=== PATIENT | female | born 1980 | race Two or more races ===

== ENCOUNTER 2019-11-27 00:43 | Emergency (ER) | payer MEDICAID, OTHER ==
[2019-11-27] MEDS ORDERED: Ketorolac 60 MG/2 ML SDV IM ONE (01:17)
--- NOTE | 2019-11-27 01:23 | EDM.PDOC ---
ED HPI GENERAL MEDICAL PROBLEM - General Chief Complaint: Drug or Alcohol Abuse Stated Complaint: DRUG WITHDRAWAL Time Seen by Provider: 11/27/19 00:47 - History of Present Illness INITIAL COMMENTS - FREE TEXT/NARRATIVE: Patient is a 39-year-old female who presents with symptoms that she believes are related to drug withdrawal. She states that for the last month she has been steadily smoking methamphetamine and smoking fentanyl pills. She does have a remote history of IV drug abuse. She arrived in town today she moved here from [place] to be with her mom and try and get clean. She states that she has never been through withdrawal before and is quite scared she describes diffuse pain and body aches fatigue lack of energy and depressed mood. No fevers no cough no neck pain or stiffness no sore throat no runny nose. Symptoms are constant and moderate to severe without exacerbating or alleviating factors radiation or other associated symptoms. Generalized Pain Score (Numeric/FACES): 8 - Related Data Allergies Allergy/AdvReac Type Severity Reaction Status Date / Time metoclopramide HCl Allergy itchiness Verified 11/27/19 01:06 [From Reglan] nitrofurantoin Allergy Hives Verified 11/27/19 01:06 [From Macrobid] nitrofurantoin Allergy Hives Verified 11/27/19 01:06 macrocrystalline [From Macrobid] ondansetron HCl Allergy itchiness Verified 11/27/19 01:06 [From Zofran (as hydrochloride)] prochlorperazine edisylate Allergy itchiness Verified 11/27/19 01:06 [From Compazine] prochlorperazine maleate Allergy itchiness Verified 11/27/19 01:06 [From Compazine] Home Meds: Home Meds . [No Known Home Meds] 11/27/19 [History] Past Medical History Cardiovascular History: Reports: Hypertension Genitourinary History: Reports: None Other RESIDENTIAL PROGRAM MANAGER History: CSx4 Musculoskeletal History: Reports: None Neurological History: Reports: None Psychiatric History: Reports: None Endocrine/Metabolic History: Reports: Diabetes, Type II Hematologic History: Reports: None Immunologic History: Reports: None Oncologic (Cancer) History: Reports: None Dermatologic History: Reports: None - Infectious Disease History Infectious Disease History: Reports: None - Past Surgical History Head Surgeries/Procedures: Reports: None HEENT Surgical History: Reports: Tonsillectomy GI Surgical History: Reports: Appendectomy, Cholecystectomy Social & Family History - Family History Cardiac: Reports: Hypertension, [place] Endocrine/Metabolic: Reports: Diabetes, type II - Tobacco Use Smoking Status *Q: Current Every Day Smoker Years of Tobacco use: 19 Packs/Tins Daily: 0.2 - Caffeine Use Caffeine Use: Reports: None - Recreational Drug Use Recreational Drug Type: Reports: Fentanyl, Methamphetamine Recreational Drug Use Frequency: Daily ED ROS GENERAL - Review of Systems Review Of Systems: See Below Free Text/Narrative/Comment: General: No fever. Skin: No rash. Eyes: No vision problems. ENT: No sore throat. Neck: No neck stiffness. Respiratory: No shortness of breath. Cardiac: No chest pain. Gastrointestinal: No nausea, vomiting or abdominal pain. Urinary: No dysuria. Musculoskeletal: Per HPI Neurologic: No headache. ED EXAM, GENERAL - Physical Exam Exam: See Below Free Text/Narrative:: General Appearance: No acute distress, appears comfortable Skin: No rash HEENT: Normocephalic/atraumatic, sclera anicteric, mucous membranes moist Neck: Normal range of motion Chest and Lungs: Bilateral breath sounds, clear to auscultation Cardiovascular: Regular rate and rhythm, no murmur Abdomen: Soft, non-tender Back: Normal Musculoskeletal: No edema or tenderness Neurologic: Awake, alert, no obvious deficits, moving all extremities Psychiatric: Appropriate, cooperative Course - Vital Signs Last Recorded V/S: Last Vital Signs Temp 96.7 F L 11/27/19 01:05 Pulse 96 11/27/19 01:05 Resp 18 11/27/19 01:05 BP 144/104 H 11/27/19 01:05 Pulse Ox 96 11/27/19 01:05 - Orders/Labs/Meds Orders: Active Orders 24 hr Category Date Time Status CORONAVIRUS COVID-19 PCR PHL Stat Lab 11/27/19 01:17 Ordered Labs: Laboratory Tests 11/27/19 Range/Units 01:29 SARS CoV-2 RNA Rapid M[facility]A NEGATIVE (NEGATIVE) Meds: Medications Discontinued Medications Generic Name Dose Route Start Last Admin Trade Name Freq PRN Reason Stop Dose Admin Ketorolac Tromethamine 60 mg 11/27/19 01:17 11/27/19 01:34 Toradol IM 11/27/19 01:18 60 mg ONETIME ONE Administration Departure - Departure Time of Disposition: 02:34 Disposition: Home, Self-Care 01 Condition: Good Clinical Impression: Drug withdrawal - Discharge Information *PRESCRIPTION DRUG MONITORING PROGRAM REVIEWED*: Not Applicable *COPY OF PRESCRIPTION DRUG MONITORING REPORT IN PATIENT ERIK: Not Applicable Instructions: Opioid Withdrawal Treatment, Finding Treatment for Addiction Referrals: [facility] [Outside] Forms: ED Department Discharge Additional Instructions: The following information is given to patients seen in the emergency department who are being discharged to home. This information is to outline your options for follow-up care. We provide all patients seen in our emergency department with a follow-up referral. The need for follow-up, as well as the timing and circumstances, are variable depending upon the specifics of your emergency department visit. If you don't have a primary care physician on staff, we will provide you with a referral. We always advise you to contact your personal physician following an emergency department visit to inform them of the circumstance of the visit and for follow-up with them and/or the need for any referrals to a consulting specialist. The emergency department will also refer you to a specialist when appropriate. This referral assures that you have the opportunity for follow-up care with a specialist. All of these measure are taken in an effort to provide you with optimal care, which includes your follow-up. Under all circumstances we always encourage you to contact your private physician who remains a resource for coordinating your care. When calling for follow-up care, please make the office aware that this follow-up is from your recent emergency room visit. If for any reason you are refused follow-up, please contact the [facility] Emergency Department at and asked to speak to the emergency department charge nurse. Sepsis Event Note (ED) - Evaluation Sepsis Screening Result: No Definite Risk - Focused Exam Vital Signs: Vital Signs Temp Pulse Resp BP Pulse Ox 11/27/19 01:05 96.7 F L 96 18 144/104 H 96 - My Orders Last 24 Hours: My Active Orders 11/27/19 01:17 CORONAVIRUS COVID-19 PCR PHL Stat - Assessment/Plan Last 24 Hours: My Active Orders 11/27/19 01:17 CORONAVIRUS COVID-19 PCR PHL Stat Assessment:: 39-year-old female presenting with signs and symptoms that are most likely due to meth and opioid withdrawal. No dysuria no fever but symptoms are similar to COVID and given the outbreak will swab. No dysuria hematuria that would suggest pyelonephritis no abdominal pain would suggest appendicitis or diverticulitis no findings of meningitis or encephalitis. Patient nontoxic in appearance. Patient will be swab for COVID given a shot of Toradol we discussed the expected course of drug withdrawal and patient provided with resources in the community for follow-up. COVID negative patient discharged with resources.
[2019-11-27 06:46] VITALS: BP 151/105; PULSE 97
== END 2019-11-27 02:54 | disposition home or self-care (01) ==
LOC: MW.ED 00:43
DX: F15.93 Other stimulant use, unspecified with withdrawal (principal); F11.23 Opioid dependence with withdrawal; I10 Essential (primary) hypertension; E11.9 Type 2 diabetes mellitus without complications; F17.210 Nicotine dependence, cigarettes, uncomplicated; Z88.1 Allergy status to other antibiotic agents; Z88.8 Allergy status to other drugs, medicaments and biological substances; Z20.828 Contact with and (suspected) exposure to other viral communicable diseases
CPT/HCPCS: 87635; 96372; 99284; J1885; 99283; U0002

== ENCOUNTER 2019-11-27 09:23 | Emergency (ER) | payer MEDICAID ==
--- NOTE | 2019-11-27 09:24 | EDM.PDOC ---
ED HPI GENERAL MEDICAL PROBLEM - General Stated Complaint: UNKNOWN ISSUE Time Seen by Provider: 11/27/19 09:23 Source of Information: Reports: Patient History Limitations: Reports: No Limitations - History of Present Illness INITIAL COMMENTS - FREE TEXT/NARRATIVE: 39-year-old female with remote history of IV drug abuse returns for symptoms of opiate withdrawal. She was seen in the ER this morning and was discharged around 2:30 AM with a diagnosis of opiate withdrawal, she went home to the [facility] and states that she has not been able to sleep, she vomited 3 times, she had diffuse myalgia, she feels anxious and had chills and runny nose. The symptoms prompted her to come back for reassessment. She was not discharged with any prescriptions. She flew here from [place] yesterday to be with her mom to try to get clean. The last time she smoked fentanyl pills and methamphetamine was Saturday. She used IV drugs 4 months ago. Patient denies fever, headache, chest pain, shortness of breath, abdominal pain, focal numbness or weakness. ROS: A 10-point review of systems, other than pertinent positives and negatives as stated per HPI, is otherwise negative Past medical history: No additional pertinent history Past Surgical history: No additional pertinent history Social history: No additional pertinent history Family history: No additional pertinent history PHYSICAL EXAM General: AOx4, GCS = 15, No distress HEENT: dry mucous membrane, pupils 3mm bilaterally Neck: supple, no meningismus, no Kernig or Brudzinski Cardiac: S1S2 RRR Respiratory: CTAB, no crackles or rales, no wheezing Abdomen: Soft, nontender, no rebound or guarding, nondistended, no pulsatile mass. Back: nontender Musculoskeletal: NVI distally, no deformity Neuro: No focal deficits, CN 2 - 12 WNL. no tremors. Abdominal Pain Score (Numeric/FACES): 9 - Related Data Allergies Allergy/AdvReac Type Severity Reaction Status Date / Time metoclopramide HCl Allergy itchiness Verified 11/27/19 09:42 [From Reglan] nitrofurantoin Allergy Hives Verified 11/27/19 09:42 [From Macrobid] nitrofurantoin Allergy Hives Verified 11/27/19 09:42 macrocrystalline [From Macrobid] ondansetron HCl Allergy itchiness Verified 11/27/19 09:42 [From Zofran (as hydrochloride)] prochlorperazine edisylate Allergy itchiness Verified 11/27/19 09:42 [From Compazine] prochlorperazine maleate Allergy itchiness Verified 11/27/19 09:42 [From Compazine] Home Meds: Home Meds cloNIDine [Catapres] 0.1 mg PO DAILY #12 tab 11/27/19 [Rx] Past Medical History Cardiovascular History: Reports: Hypertension Genitourinary History: Reports: None Other OCCUPATIONAL HEALTH SPECIALIST History: CSx4 Musculoskeletal History: Reports: None Neurological History: Reports: None Psychiatric History: Reports: None Endocrine/Metabolic History: Reports: Diabetes, Type II Hematologic History: Reports: None Immunologic History: Reports: None Oncologic (Cancer) History: Reports: None Dermatologic History: Reports: None - Infectious Disease History Infectious Disease History: Reports: None - Past Surgical History Head Surgeries/Procedures: Reports: None HEENT Surgical History: Reports: Tonsillectomy GI Surgical History: Reports: Appendectomy, Cholecystectomy Social & Family History - Family History Cardiac: Reports: Hypertension, [place] Endocrine/Metabolic: Reports: Diabetes, type II - Caffeine Use Caffeine Use: Reports: None ED ROS GENERAL - Review of Systems Review Of Systems: See Below (see dictation) ED EXAM, GENERAL - Physical Exam Exam: See Below (see dictation) Course - Vital Signs Last Recorded V/S: Last Vital Signs Temp 96.2 F L 11/27/19 09:42 Pulse 71 11/27/19 10:04 Resp 16 11/27/19 10:04 BP 166/122 H 11/27/19 10:00 Pulse Ox 98 11/27/19 10:04 - Orders/Labs/Meds Meds: Medications Discontinued Medications Generic Name Dose Route Start Last Admin Trade Name Freq PRN Reason Stop Dose Admin Clonidine HCl 0.1 mg 11/27/19 09:52 11/27/19 10:00 Catapres PO 11/27/19 09:53 0.1 mg ONETIME ONE Administration Lorazepam 1 mg 11/27/19 09:52 11/27/19 10:01 Ativan PO 11/27/19 09:53 1 mg ONETIME ONE Administration Promethazine HCl 12.5 mg 11/27/19 09:52 11/27/19 10:01 Phenergan IM 11/27/19 09:53 12.5 mg ONETIME ONE Administration - Re-Assessments/Exams Free Text/Narrative Re-Assessment/Exam: 11/27/19 10:36 After receiving promethazine IM, Ativan and clonidine 0.1 mg p.o., her symptoms improved and she feels much better, she is currently stable for discharge. I performed a repeat exam and did not appreciate new abnormal findings. Patient exhibits normal vital signs and has a normal gait on road test. I advised the patient to return to the ER for reevaluation if symptoms worsened, including fe jose raul, worsening pain, or any other worrisome symptoms. I instructed the patient to follow up with their PCP within 2-3 days. MEDICAL DECISION MAKING: I reviewed the patients past medical records, lab and radiographic findings. I discussed the case with the patient. My differential diagnosis included: Opiate withdrawal, no suspicion for appendicitis, no suspicion for intracranial infectious process. Patient is afebrile, no nuchal rigidity or headache, I do not suspect encephalitis or meningitis. Patient's abdomen is soft and nontender, no tenderness to right lower quadrant, I do not suspect appendicitis. Patient's COWS score for opiate withdrawal = 8, she is having symptoms of mild withdrawal, she is amendable for outpatient treatment and follow-up with outpatient resources provided. She will be prescribed clonidine 0.1 mg daily for her symptoms. Departure - Departure Time of Disposition: 10:37 Disposition: Home, Self-Care 01 Condition: Good Clinical Impression: Opiate withdrawal - Discharge Information *PRESCRIPTION DRUG MONITORING PROGRAM REVIEWED*: Not Applicable *COPY OF PRESCRIPTION DRUG MONITORING REPORT IN PATIENT ERIK: Not Applicable Prescriptions: cloNIDine [Catapres] 0.1 mg PO DAILY #12 tab Instructions: Opioid Withdrawal Treatment, Finding Treatment for Addiction, Opioid Withdrawal Forms: ED Department Discharge Additional Instructions: The need for follow-up, as well as the timing and circumstances, are variable depending upon the specifics of your emergency department visit. If you don't have a primary care physician on staff, we will provide you with a referral. We always advise you to contact your personal physician following an emergency department visit to inform them of the circumstance of the visit and for follow-up with them and/or the need for any referrals to a consulting specialist. The emergency department will also refer you to a specialist when appropriate. This referral assures that you have the opportunity for follow-up care with a specialist. All of these measure are taken in an effort to provide you with optimal care, which includes your follow-up. Under all circumstances we always encourage you to contact your private physician who remains a resource for coordinating your care. When calling for follow-up care, please make the office aware that this follow-up is from your recent emergency room visit. If for any reason you are refused follow-up, please contact the Emergency Department at and asked to speak to the emergency department charge nurse. If you do not have a primary care doctor, please follow up with the clinics below within 3-5 days. [facility] - Primary Care [address] [place], [place] [id number] [place] [address] Sepsis Event Note (ED) - Focused Exam Vital Signs: Vital Signs Temp Pulse Resp BP BP Pulse Ox 11/27/19 10:04 71 16 98 11/27/19 10:00 166/122 H 11/27/19 09:42 96.2 F L 81 16 148/106 H 100
[2019-11-27] MEDS ORDERED: LORazepam 1 MG Tab PO ONE (09:52)
[2019-11-27] MEDS ORDERED: Promethazine 25 MG/ML SDV IM ONE (09:52)
[2019-11-27] MEDS ORDERED: cloNIDine 0.1 MG Tab PO ONE (09:52)
[2019-11-27 10:41] VITALS: BP 158/111; PULSE 87
== END 2019-11-27 10:55 | disposition home or self-care (01) ==
LOC: MW.ED 09:23
DX: F11.23 Opioid dependence with withdrawal (principal); I10 Essential (primary) hypertension; E11.9 Type 2 diabetes mellitus without complications; Z88.8 Allergy status to other drugs, medicaments and biological substances; Z88.1 Allergy status to other antibiotic agents; Z79.899 Other long term (current) drug therapy
CPT/HCPCS: 96372; 99283; A9270; J2550

== ENCOUNTER 2019-11-27 21:50 | Emergency (ER) | payer MEDICAID ==
[2019-11-27] MEDS ORDERED: Sodium Chloride 0.9% 2.5 ML Syringe FLUSH PRN (22:03)
[2019-11-27] MEDS ORDERED: Sodium Chloride 0.9% 10 ML Syringe FLUSH PRN (22:03)
[2019-11-27] MEDS ORDERED: Sodium Chloride 0.9% 1,000 ML IV ONE (22:04)
--- NOTE | 2019-11-27 22:13 | EDM.PDOC ---
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 Shortly after midnight she came and saw my partner for withdrawal symptoms and received parenteral ketorolac for pain and instruction on what to expect with drug withdrawal. Later in the morning she came in and saw 1 of my other partners and was given that again, Ativan, and clonidine as well as a prescription for clonidine. She says she has unbearable lower chest upper epigastric pain and her mother said after they went to a restaurant and ate she became difficult to arouse. She was dragged out of a car and brought by stretcher into the emergency room. At rst she appeared to be unresponsive but she was responsive to painful and then verbal stimuli in the department. Her sugar was checked immediately and found to be adequate over 300 in fact. Her past history reveals she used to take metformin. She took 3 medicines for blood pressure as well. Review of systems: As per history of present illness and below otherwise all systems reviewed and negative. Past medical history: As per history of present illness and as reviewed below otherwise noncontributory. Surgical history: As per history of present illness and as reviewed below otherwise no ncontributory. Social history: No reported history of drug or alcohol abuse. Family history: As per history of present illness and as reviewed below otherwise noncontributory. Physical exam: Constitutional - well developed, well-nourished and in no acute distress HEENT - normocephalic, no evidence of trauma - external nose and mouth normal - no mass in neck and no JVD - mucosae moist EYES - full EOM, PERRL, no icterus - no evidence of inflammation, injection, or drainage Respiratory - no respiratory distress, equal bilateral expansion, lungs clear to auscultation and no abnormal lung sounds Cardiovascular - Regular Rhythm with S1 and S2 appreciated and no murmur, gallop or rub. GI - abdomen soft without distension or organomegaly - normal bowel sounds - no guard or rebound Musculoskeletal no gross deformity of long bones or joints - no tenderness, swelling or edema Neurologic -supple and oriented to person time and circumstances. At first she still thought she was in [facility] He remembered she moved here to be with her mother so technically she is oriented x4.- CN II-XII grossly intact - motor sensory and coordination symmetrically normal Psychiatric -stressed but cooperative Hematologic - No petechiae or purpura - mucosa appropriate color and sclera not pale - normal nail bed color and refill Integument - no rash or evidence of trauma - normal turgor Diagnostics: [] Therapeutics: [] Impression: [] Plan: [] Definitive disposition and diagnosis as appropriate pending reevaluation and review of above. chest Pain Score (Numeric/FACES): 5 - Related Data Allergies Allergy/AdvReac Type Severity Reaction Status Date / Time metoclopramide HCl Allergy itchiness Verified 11/27/19 23:09 [From Reglan] nitrofurantoin Allergy Hives Verified 11/27/19 23:09 [From Macrobid] nitrofurantoin Allergy Hives Verified 11/27/19 23:09 macrocrystalline [From Macrobid] ondansetron HCl Allergy itchiness Verified 11/27/19 23:09 [From Zofran (as hydrochloride)] prochlorperazine edisylate Allergy itchiness Verified 11/27/19 23:09 [From Compazine] prochlorperazine maleate Allergy itchiness Verified 11/27/19 23:09 [From Compazine] Home Meds: Home Meds ClonazePAM [KlonoPIN] 0.5 mg PO TID PRN #14 tab 11/27/19 [Rx] cloNIDine [Catapres] 0.1 mg PO DAILY #12 tab 11/27/19 [Rx] metFORMIN HCl [Metformin HCl] 500 mg PO BID #60 tablet 11/28/19 [Rx] Past Medical History Cardiovascular History: Reports: Hypertension Genitourinary History: Reports: None Other TRAFFIC OFFICER History: CSx4 Musculoskeletal History: Reports: None Neurological History: Reports: None Psychiatric History: Reports: None Endocrine/Metabolic History: Reports: Diabetes, Type II Hematologic History: Reports: None Immunologic History: Reports: None Oncologic (Cancer) History: Reports: None Dermatologic History: Reports: None - Infectious Disease History Infectious Disease History: Reports: None - Past Surgical History Head Surgeries/Procedures: Reports: None HEENT Surgical History: Reports: Tonsillectomy GI Surgical History: Reports: Appendectomy, Cholecystectomy Social & Family History - Family History Family Medical History: Noncontributory Cardiac: Reports: Hypertension, OR Endocrine/Metabolic: Reports: Diabetes, type II - Caffeine Use Caffeine Use: Reports: None ED ROS GENERAL - Review of Systems Review Of Systems: Comprehensive ROS is negative, except as noted in HPI. ED EXAM, GENERAL - Physical Exam Exam: See Below EKG INTERPRETATION EKG Date: 11/27/19 Rhythm: NSR [place]: Normal P-Wave: Present QRS: Normal (Impression normal) Course - Vital Signs Text/Narrative:: [facility]ven department and at 12:03 AM on 27 November she had tremor of her legs but otherwise was markedly improved and arousable. It suggest she possibly had use some other substance in the interim since she was last seen here. She will be referred to [facility] health services. Last Recorded V/S: Last Vital Signs Temp 96.9 F 11/27/19 21:51 Pulse 78 11/27/19 23:34 Resp 14 11/27/19 23:34 BP 123/96 H 11/27/19 23:34 Pulse Ox 95 11/27/19 23:34 - Orders/Labs/Meds Orders: Active Orders 24 hr Category Date Time Status EKG Documentation Completion [RC] AM Care 11/27/19 22:03 Active Sodium Chloride 0.9% [Saline Flush] Med 11/27/19 22:03 Active 10 ml FLUSH ASDIRECTED PRN Sodium Chloride 0.9% [Saline Flush] Med 11/27/19 22:03 Active 2.5 ml FLUSH ASDIRECTED PRN Saline Lock Insert [OM.PC] Stat Oth 11/27/19 22:03 Ordered Medication Orders Sodium Chloride (Saline Flush) 10 ml FLUSH ASDIRECTED PRN PRN Reason: Keep Vein Open Sodium Chloride (Saline Flush) 2.5 ml FLUSH ASDIRECTED PRN PRN Reason: Keep Vein Open Labs: Laboratory Tests 11/27/19 11/27/19 11/27/19 Range/Units 21:53 21:53 21:53 WBC 10.53 (4.0-11.0) K/uL RBC 4.15 L (4.30-5.90) M/uL Hgb 10.6 L (12.0-16.0) g/dL Hct 33.0 L (36.0-46.0) % MCV 79.5 L (80.0-98.0) fL MCH 25.5 L (27.0-32.0) pg MCHC 32.1 (31.0-37.0) g/dL RDW Std Deviation 43.3 (28.0-62.0) fl RDW Coeff of Hoang 15 (11.0-15.0) % Plt Count 458 H (150-400) K/uL MPV 10.10 (7.40-12.00) fL Neut % (Auto) 69.3 (48.0-80.0) % Lymph % (Auto) 23.9 (16.0-40.0) % [place] % (Auto) 6.0 (0.0-15.0) % Eos % (Auto) 0.6 (0.0-7.0) % Baso % (Auto) 0.2 (0.0-1.5) % Neut # (Auto) 7.3 H (1.4-5.7) K/uL Lymph # (Auto) 2.5 H (0.6-2.4) K/uL [place] # (Auto) 0.6 (0.0-0.8) K/uL Eos # (Auto) 0.1 (0.0-0.7) K/uL Baso # (Auto) 0.0 (0.0-0.1) K/uL Nucleated RBC % 0.0 /100WBC Nucleated RBCs # 0 K/uL Sodium 133 L (136-145) mmol/L Potassium 4.1 (3.5-5.1) mmol/L Chloride 100 (98-107) mmol/L Carbon Dioxide 25.0 (21.0-32.0) mmol/L BUN 13 (7.0-18.0) mg/dL Creatinine 0.8 (0.6-1.0) mg/dL Est Cr Clr Drug Dosing TNP Estimated GFR (MDRD) > 60.0 ml/min Glucose 383 H (74-106) mg/dL Calcium 8.5 (8.5-10.1) mg/dL Total Bilirubin 0.1 L (0.2-1.0) mg/dL AST 9 L (15-37) IU/L ALT 18 (14-63) IU/L Alkaline Phosphatase 65 (46-116) U/L Troponin I < 0.050 (0.000-0.056) ng/mL Total Protein 7.3 (6.4-8.2) g/dL Albumin 2.8 L (3.4-5.0) g/dL Globulin 4.5 H (2.6-4.0) g/dL Albumin/Globulin Ratio 0.6 L (0.9-1.6) Lipase (73-393) U/L HCG, Qual NEGATIVE (NEG) Urine Color Urine Appearance Urine pH (5.0-8.0) Ur Specific Rippey (1.001-1.035) Urine Protein (NEGATIVE) mg/dL Urine Glucose (UA) (NEGATIVE) mg/dL Urine Ketones (NEGATIVE) mg/dL Urine Occult Blood (NEGATIVE) Urine Nitrite (NEGATIVE) Urine Bilirubin (NEGATIVE) Urine Urobilinogen (<2.0) EU/dL Ur Leukocyte Esterase (NEGATIVE) Urine RBC (0-2/HPF) Urine WBC (0-5/HPF) Ur Epithelial Cells (NONE-FEW) Urine Bacteria (NEGATIVE) Urine Opiates Screen (NEGATIVE) Ur Oxycodone Screen (NEGATIVE) Urine Methadone Screen (NEGATIVE) Ur Barbiturates Screen (NEGATIVE) Ur Phencyclidine Scrn (NEGATIVE) Ur Amphetamine Screen (NEGATIVE) U Methamphetamines Scrn (NEGATIVE) U Benzodiazepines Scrn (NEGATIVE) U Cocaine Metab Screen (NEGATIVE) U Marijuana (THC) Screen (NEGATIVE) Ethyl Alcohol <3 mg/dL 11/27/19 11/27/19 11/27/19 Range/Units 21:53 22:42 22:42 WBC (4.0-11.0) K/uL RBC (4.30-5.90) M/uL Hgb (12.0-16.0) g/dL Hct (36.0-46.0) % MCV (80.0-98.0) fL MCH (27.0-32.0) pg MCHC (31.0-37.0) g/dL RDW Std Deviation (28.0-62.0) fl RDW Coeff of Hoang (11.0-15.0) % Plt Count (150-400) K/uL MPV (7.40-12.00) fL Neut % (Auto) (48.0-80.0) % Lymph % (Auto) (16.0-40.0) % [place] % (Auto) (0.0-15.0) % Eos % (Auto) (0.0-7.0) % Baso % (Auto) (0.0-1.5) % Neut # (Auto) (1.4-5.7) K/uL Lymph # (Auto) (0.6-2.4) K/uL [place] # (Auto) (0.0-0.8) K/uL Eos # (Auto) (0.0-0.7) K/uL Baso # (Auto) (0.0-0.1) K/uL Nucleated RBC % /100WBC Nucleated RBCs # K/uL Sodium (136-145) mmol/L Potassium (3.5-5.1) mmol/L Chloride (98-107) mmol/L Carbon Dioxide (21.0-32.0) mmol/L BUN (7.0-18.0) mg/dL Creatinine (0.6-1.0) mg/dL Est Cr Clr Drug Dosing Estimated GFR (MDRD) ml/min Glucose (74-106) mg/dL Calcium (8.5-10.1) mg/dL Total Bilirubin (0.2-1.0) mg/dL AST (15-37) IU/L ALT (14-63) IU/L Alkaline Phosphatase (46-116) U/L Troponin I (0.000-0.056) ng/mL Total Protein (6.4-8.2) g/dL Albumin (3.4-5.0) g/dL Globulin (2.6-4.0) g/dL Albumin/Globulin Ratio (0.9-1.6) Lipase 261 (73-393) U/L HCG, Qual (NEG) Urine Color YELLOW Urine Appearance SLT CLOUDY Urine pH 6.0 (5.0-8.0) Ur Specific Rip[place]y 1.025 (1.001-1.035) Urine Protein NEGATIVE (NEGATIVE) mg/dL Urine Glucose (UA) >=1000 (NEGATIVE) mg/dL Urine Ketones NEGATIVE (NEGATIVE) mg/dL Urine Occult Blood NEGATIVE (NEGATIVE) Urine Nitrite NEGATIVE (NEGATIVE) Urine Bilirubin NEGATIVE (NEGATIVE) Urine Urobilinogen 0.2 (<2.0) EU/dL Ur Leukocyte Esterase SMALL H (NEGATIVE) Urine RBC 1-2 (0-2/HPF) Urine WBC 4-8 (0-5/HPF) Ur Epithelial Cells FEW (NONE-FEW) Urine Bacteria FEW (NEGATIVE) Urine Opiates Screen NEGATIVE (NEGATIVE) Ur Oxycodone Screen NEGATIVE (NEGATIVE) Urine Methadone Screen NEGATIVE (NEGATIVE) Ur Barbiturates Screen NEGATIVE (NEGATIVE) Ur Phencyclidine Scrn NEGATIVE (NEGATIVE) Ur Amphetamine Screen NEGATIVE (NEGATIVE) U Methamphetamines Scrn NEGATIVE (NEGATIVE) U Benzodiazepines Scrn NEGATIVE (NEGATIVE) U Cocaine Metab Screen NEGATIVE (NEGATIVE) U Marijuana (THC) Screen NEGATIVE (NEGATIVE) Ethyl Alcohol mg/dL Meds: Medications Generic Name Dose Route Start Last Admin Trade Name Freq PRN Reason Stop Dose Admin Sodium Chloride 10 ml 11/27/19 22:03 Saline Flush FLUSH ASDIRECTED PRN Keep Vein Open Sodium Chloride 2.5 ml 11/27/19 22:03 Saline Flush FLUSH ASDIRECTED PRN Keep Vein Open Discontinued Medications Generic Name Dose Route Start Last Admin Trade Name Freq PRN Reason Stop Dose Admin Clonazepam 1 mg 11/27/19 23:58 Klonopin PO 11/27/19 23:59 ONETIME ONE Sodium Chloride 1,000 mls @ 999 mls/hr 11/27/19 22:04 11/27/19 22:19 Normal Saline IV 11/27/19 23:04 999 mls/hr .BOLUS ONE Administration Departure - Departure Time of Disposition: 00:04 Disposition: Home, Self-Care 01 Condition: Good Clinical Impression: Drug withdrawal, Hyperglycemia - Discharge Information Prescriptions: ClonazePAM [KlonoPIN] 0.5 mg PO TID PRN #14 tab PRN Reason: Other Referrals: PCP,None [Primary Care Provider] - Forms: ED Department Discharge Additional Instructions: The following information is given to patients seen in the emergency department who are being discharged to home. This information is to outline your options for follow-up care. We provide all patients seen in our emergency department with a follow-up referral. The need for follow-up, as well as the timing and circumstances, are variable depending upon the specifics of your emergency department visit. If you don't have a primary care physician on staff, we will provide you with a referral. We always advise you to contact your personal physician following an emergency department visit to inform them of the circumstance of the visit and for follow-up with them and/or the need for any referrals to a consulting specialist. The emergency department will also refer you to a specialist when appropriate. This referral assures that you have the opportunity for follow-up care with a specialist. All of these measure are taken in an effort to provide you with optimal care, which includes your follow-up. Under all circumstances we always encourage you to contact your private physician who remains a resource for coordinating your care. When calling for follow-up care, please make the office aware that this follow-up is from your recent emergency room visit. If for any reason you are refused follow-up, please contact the [facility] Emergency Department at and asked to speak to the emergency department charge nurse. [facility] [address] [place] [address] [place] [address] Sepsis Event Note (ED) - Focused Exam Vital Signs: Vital Signs Temp Pulse Resp BP Pulse Ox 11/27/19 23:34 78 14 123/96 H 95 11/27/19 21:51 96.9 F 78 20 158/109 H 100 - My Orders Last 24 Hours: My Active Orders 11/27/19 22:03 EKG Documentation Completion [RC] AM Sodium Chloride 0.9% [Saline Flush] 10 ml FLUSH ASDIRECTED PRN Sodium Chloride 0.9% [Saline Flush] 2.5 ml FLUSH ASDIRECTED PRN Saline Lock Insert [OM.PC] Stat - Assessment/Plan Last 24 Hours: My Active Orders 11/27/19 22:03 EKG Documentation Completion [RC] AM Sodium Chloride 0.9% [Saline Flush] 10 ml FLUSH ASDIRECTED PRN Sodium Chloride 0.9% [Saline Flush] 2.5 ml FLUSH ASDIRECTED PRN Saline Lock Insert [OM.PC] Stat
[2019-11-27 22:26] LABS: BLOOD UREA NITROGEN,BUN 13 mg/dL (7.0-18.0); CHLORIDE,CL 100 mmol/L (98-107); GLUCOSE RANDOM 383 mg/dL (74-106); POTASSIUM,K 4.1 mmol/L (3.5-5.1); SODIUM,NA 133 mmol/L (136-145)
[2019-11-27 22:29] VITALS: PULSE 78
--- NOTE | 2019-11-27 22:57 | CR ---
Chest: Portable view of the chest was obtained. Comparison: No previous chest imaging is available. Heart size and mediastinum are normal. Lungs are clear with no acute parenchymal change. Bony structures appear within normal limits for the patient's age. Impression: 1. Nothing acute is seen on portable chest x-ray. Diagnostic code #1 This report was dictated in MDT
[2019-11-27 23:36] VITALS: BP 123/96
[2019-11-27] MEDS ORDERED: ClonazePAM 0.5 MG Tab PO ONE (23:58)
== END 2019-11-28 00:20 | disposition home or self-care (01) ==
LOC: MW.ED 21:50
DX: E11.65 Type 2 diabetes mellitus with hyperglycemia (principal); F19.939 Other psychoactive substance use, unspecified with withdrawal, unspecified; I10 Essential (primary) hypertension; Z79.84 Long term (current) use of oral hypoglycemic drugs; Z79.899 Other long term (current) drug therapy; Z88.1 Allergy status to other antibiotic agents; Z88.8 Allergy status to other drugs, medicaments and biological substances
CPT/HCPCS: 36415; 71045; 80053; 80305; 80307; 81001; 83690; 84484; 84703; 85025; 93005; 96360; 96361; 99285; A9270; J7030; 99283

== ENCOUNTER 2019-12-13 12:09 | Emergency (ER) | payer MEDICAID, OTHER ==
[2019-12-13 12:57] VITALS: PULSE 93
--- NOTE | 2019-12-13 14:00 | CR ---
INDICATION: Fall. TECHNIQUE: Two views of the right ankle. COMPARISON: None. IMPRESSION: Mild soft tissue swelling is noted about the ankle. No acute fracture is identified. Ankle mortise is symmetric. Dictated by Luis Donahue MD @ 12/13/2019 1:58:48 PM Dictated by: Luis Donahue MD @ 12/13/2019 13:58:55 (Electronically Signed)
--- NOTE | 2019-12-13 14:02 | CR ---
INDICATION: Fall. TECHNIQUE: Right knee 3 view. IMPRESSION: Anatomic alignment. No signs of acute fracture. Early narrowing in the medial compartment. Dictated by Migel Carrion MD @ Dec 13 2019 2:00PM Signed by Dr. Migel Carrion @ Dec 13 2019 2:01PM
--- NOTE | 2019-12-13 14:32 | EDM.PDOC ---
ED HPI GENERAL MEDICAL PROBLEM - General Chief Complaint: Lower Extremity Injury/Pain Stated Complaint: ANKLE INJURY Time Seen by Provider: 12/13/19 12:10 Source of Information: Reports: Patient History Limitations: Reports: No Limitations - History of Present Illness INITIAL COMMENTS - FREE TEXT/NARRATIVE: HISTORY AND PHYSICAL: History of present illness: Patient is a 39-year-old female who presents to the ED today with concern of twisting her right ankle just prior to arrival to the ED. Patient states she was at the grocery store and the [place] had just been mopped. Patient states she saw the sign that said wet floor as she started to slip. Patient states that she twisted her right ankle and then landed on her right knee. Patient states that since the incident she has been able to bear weight but has pain with doing so. Denies any head injury or loss of consciousness. Patient denies fever, chills, chest pain, shortness of breath, or cough. Denies headache, neck stiff ness, change in vision, syncope, or near syncope. Denies nausea, vomiting, abdominal pain, diarrhea, constipation, or dysuria. Has not noted any blood in urine or stool. Patient has been eating and drinking appropriately. Review of systems: As per history of present illness and below otherwise all systems reviewed and negative. Past medical history: As per history of present illness and as reviewed below otherwise noncontributory. Surgical history: As per history of present illness and as reviewed below otherwise noncontributory. Social history: See social history for further information Family history: As per history of present illness and as reviewed below otherwise noncontributory. Physical exam: General: Patient is alert, oriented, and in no acute distress. Patient sitting comfortably on exam table. HEENT: Atraumatic, normocephalic, pupils equal and reactive bilaterally, negative for conjunctival pallor or scleral icterus, mucous membranes moist, TMs normal bilaterally, throat clear, neck supple, nontender, trachea midline. No drooling or trismus noted. No meningeal signs. No hot potato voice noted. Lungs: Clear to auscultation, breath sounds equal bilaterally, chest nontender. Heart: S1S2, regular rate and rhythm without overt murmur Abdomen: Soft, nondistended, nontender. Negative for masses or hepatosplenomegaly. Negative for costovertebral tenderness. Pelvis: Stable nontender. Genitourinary: Deferred. Rectal: Deferred. Skin: Intact, warm, dry. No lesions or rashes noted. Extremities: There is some mild swelling over the lateral malleolus with gene ralized pain to this area. Patient does have limited range of motion of the right ankle due to pain. Patient does have full range of motion of the right knee and digits of the foot on the right lower extremity. Dorsalis pedis and posterior tibial pulses are grossly intact with capillary refill less than 2 seconds. Otherwise, atraumatic, negative for cords or calf pain. Neurovascular unremarkable. Neuro: Awake, alert, oriented. Cranial nerves II through XII unremarkable. Cerebellum unremarkable. Motor and sensory unremarkable throughout. Exam nonfocal. Notes: Signs and symptoms that would prompt return to the ED thoroughly discussed with patient. Discussed the importance for follow-up with an orthopedic provider or her primary care provider. Voices understanding and is agreeable to plan of care. Denies any further questions or concerns at this time. Diagnostics: Ankle XR Therapeutics: Aircast splint, crutches Prescription: Diclofenac Impression: Right ankle injury Plan: 1. Rest, ice, elevate the affected extremity. You can apply ice 15 minutes on, 15 minutes off. 2. Tylenol and/or Ibuprofen as directed for pain management or discomfort. 3. Follow up with the Orthopedic provider or primary care provider as discussed. Return to the ED as needed and as discussed. Definitive disposition and diagnosis as appropriate pending reevaluation and review of above. right ankle,right knee Pain Score (Numeric/FACES): 7 - Related Data Allergies Allergy/AdvReac Type Severity Reaction Status Date / Time metoclopramide HCl Allergy itchiness Verified 12/13/19 12:40 [From Reglan] nitrofurantoin Allergy Hives Verified 12/13/19 12:40 [From Macrobid] nitrofurantoin Allergy Hives Verified 12/13/19 12:40 macrocrystalline [From Macrobid] ondansetron HCl Allergy itchiness Verified 12/13/19 12:40 [From Zofran (as hydrochloride)] prochlorperazine edisylate Allergy itchiness Verified 12/13/19 12:40 [From Compazine] prochlorperazine maleate Allergy itchiness Verified 12/13/19 12:40 [From Compazine] Home Meds: Home Meds ClonazePAM [KlonoPIN] 0.5 mg PO TID PRN #14 tab 11/27/19 [Rx] metFORMIN HCl [Metformin HCl] 500 mg PO BID #60 tablet 11/28/19 [Rx] Diclofenac Sodium [Voltaren] 75 mg PO BIDMEALS PRN #15 tab.cr 12/13/19 [Rx] cloNIDine [Catapres] 0.1 mg PO DAILY PRN 12/13/19 [History] Past Medical History HEENT History: Reports: None Cardiovascular History: Reports: Hypertension Gastrointestinal History: Reports: None Genitourinary History: Reports: None [employer]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 Musculoskeletal History: Reports: None Neurological History: Reports: None Psychiatric History: Reports: None Endocrine/Metabolic History: Reports: Diabetes, Type II Hematologic History: Reports: None Immunologic History: Reports: None Oncologic (Cancer) History: Reports: None Dermatologic History: Reports: None - Infectious Disease History Infectious Disease History: Reports: Chicken Pox - Past Surgical History Head Surgeries/Procedures: Reports: None HEENT Surgical History: Reports: Tonsillectomy GI Surgical History: Reports: Appendectomy, Cholecystectomy Female Surgical History: Reports: Section Social & Family History - Family History Family Medical History: Noncontributory Cardiac: Reports: Hypertension, [place] Endocrine/Metabolic: Reports: Diabetes, type II - Tobacco Use Smoking Status *Q: Current Some Day Smoker Years of Tobacco use: 2 Packs/Tins Daily: 0 - Caffeine Use Caffeine Use: Reports: None - Recreational Drug Use Recreational Drug Use: Yes Drug Use in Last 12 Months: Yes Recreational Drug Type: Reports: Fentanyl, Methamphetamine Recreational Drug Use Frequency: Not Used In Over 1 Month Review of Systems - Review of Systems Review Of Systems: Comprehensive ROS is negative, except as noted in HPI. ED EXAM, GENERAL - Physical Exam Exam: See Below (see dictation) Course - Vital Signs Last Recorded V/S: Last Vital Signs Temp 97 F 12/13/19 12:37 Pulse 93 12/13/19 12:37 Resp 16 12/13/19 12:37 BP Pulse Ox 98 12/13/19 12:37 Departure - Departure Time of Disposition: 14:31 Disposition: Home, Self-Care 01 Clinical Impression: Right ankle injury Qualifiers: Encounter type: initial encounter Qualified Code(s): S99.911A - Unspecified injury of right ankle, initial encounter - Discharge Information Instructions: Ankle Sprain, [id number] Referrals: Carrie Michelle [Primary Care Provider] - Forms: ED Department Discharge Additional Instructions: The following information is given to patients seen in the emergency department who are being discharged to home. This information is to outline your options for follow-up care. We provide all patients seen in our emergency department with a follow-up referral. The need for follow-up, as well as the timing and circumstances, are variable depending upon the specifics of your emergency department visit. If you don't have a primary care physician on staff, we will provide you with a referral. We always advise you to contact your personal physician following an emergency department visit to inform them of the circumstance of the visit and for follow-up with them and/or the need for any referrals to a consulting specialist. The emergency department will also refer you to a specialist when appropriate. This referral assures that you have the opportunity for follow-up care with a specialist. All of these measure are taken in an effort to provide you with optimal care, which includes your follow-up. Under all circumstances we always encourage you to contact your private physician who remains a resource for coordinating your care. When calling for follow-up care, please make the office aware that this follow-up is from your recent emergency room visit. If for any reason you are refused follow-up, please contact the [facility] Emergency Department at and asked to speak to the emergency department charge nurse. [facility] [address] [place] [id number] [address] [facility] - [facility] Professional Building [address] [place] [address], [address] [place] [address] Dr Turner, Orthopedist [address] [address] [address] Babb - Dr Batista - Dr Waters [facility] [address] [place] [address] [facility] [address] [place] [address] 1. Rest, ice, elevate the affected extremity. You can apply ice 15 minutes on, 15 minutes off. 2. Tylenol and/or Ibuprofen as directed for pain management or discomfort. 3. Follow up with the Orthopedic provider as discussed. Return to the ED as needed and as discussed. Sepsis Event Note (ED) - Evaluation Sepsis Screening Result: No Definite Risk - Focused Exam Vital Signs: Vital Signs Temp Pulse Resp Pulse Ox 12/13/19 12:37 97 F 93 16 98
== END 2019-12-13 14:49 | disposition home or self-care (01) ==
LOC: MW.ED 12:09
DX: S99.911A Unspecified injury of right ankle, initial encounter (principal); I10 Essential (primary) hypertension; E11.9 Type 2 diabetes mellitus without complications; F17.210 Nicotine dependence, cigarettes, uncomplicated; Z88.8 Allergy status to other drugs, medicaments and biological substances; Z88.1 Allergy status to other antibiotic agents; Z79.84 Long term (current) use of oral hypoglycemic drugs; X50.1XXA Overexertion from prolonged static or awkward postures, initial encounter
CPT/HCPCS: 73562-26-RT; 73562-RT; 73600-26-RT; 73600-RT; 99283; 99283-25

== ENCOUNTER 2021-06-21 01:56 | Day surgery (SDC) | payer MEDICAID ==
[2021-06-21] MEDS ORDERED: Morphine 4 MG/ML VIAL IVPUSH ONE ×2 (02:04→06:26)
[2021-06-21 02:52] LABS: BLOOD UREA NITROGEN,BUN 17 mg/dL (7.0-18.0); CARBON DIOXIDE,CO2 22.6 mmol/L (21.0-32.0); CHLORIDE,CL 105 mmol/L (98-107); ESTIMATED GFR > 60.0 ml/min; GLUCOSE RANDOM 229 mg/dL (74-106); LIPASE 102 U/L (73-393); POTASSIUM,K 3.9 mmol/L (3.5-5.1); SODIUM,NA 140 mmol/L (136-145)
[2021-06-21] MEDS ORDERED: Famotidine 20 MG/2 ML SDV IVPUSH ONE (03:08)
[2021-06-21] MEDS ORDERED: Alum Hydro/Mag Hydro/Simeth XS 15 ML, Lidocaine 2% 5 ML PO ONE ×4 (03:08→06:26)
[2021-06-21] MEDS ORDERED: HYDROmorphone 1 MG/ML Syringe IVPUSH ONE (03:31)
[2021-06-21] MEDS ORDERED: diphenhydrAMINE 50 MG/ML SDV IVPUSH ONE (04:16)
[2021-06-21] MEDS ORDERED: Iopamidol 755 MG/ML 500 ML Multipack Bottle IVPUSH STA (04:50)
[2021-06-21] MEDS ORDERED: Pantoprazole 40 MG in Sodium Chloride 0.9% 10 ML IVPUSH ONE (06:07)
[2021-06-21] MEDS ORDERED: Sodium Chloride 0.9% 10 ML Syringe FLUSH PRN (08:02)
[2021-06-21] MEDS ORDERED: Sodium Chloride 0.9% 2.5 ML Syringe FLUSH PRN (08:02)
[2021-06-21] MEDS ORDERED: Promethazine 25 MG/ML SDV IM PRN (08:56)
[2021-06-21] MEDS: Morphine 2 MG/ML SYRINGE IVPUSH PRN ×3 (09:09→20:35)
[2021-06-21] MEDS ORDERED: 50% Dextrose in Water 50 ML Syringe IVPUSH PRN (09:34)
[2021-06-21] MEDS ORDERED: Glucagon,Human Recombinant 1 MG Vial IM PRN (09:34)
[2021-06-21] MEDS: Sucralfate Suspension 1 GM/10 ML Cup PO SCH ×3 (12:07→20:34)
[2021-06-21] MEDS: Insulin Aspart 100 Units/ML 3 ML Pen SUBCUT SCH ×3 (13:23→23:55)
[2021-06-21] MEDS: Pantoprazole 40 MG in Sodium Chloride 0.9% 10 ML IVPUSH SCH (17:33)
[2021-06-21] MEDS: Carboxymethylcellulose Sodium 0.5% Ophth Soln 0.4 ML UD Box of 30 EYEBOTH PRN (17:43)
[2021-06-21] MEDS: Lactated Ringers 1,000 ML IV SCH (23:37)
[2021-06-22] MEDS: Morphine 2 MG/ML SYRINGE IVPUSH PRN ×3 (01:08→12:57)
[2021-06-22] MEDS ORDERED: Pantoprazole 40 MG in Sodium Chloride 0.9% 10 ML IVPUSH SCH (06:00)
[2021-06-22 06:08] LABS: BLOOD UREA NITROGEN,BUN 12 mg/dL (7.0-18.0); CARBON DIOXIDE,CO2 24.2 mmol/L (21.0-32.0); CHLORIDE,CL 105 mmol/L (98-107); ESTIMATED GFR > 60.0 ml/min; GLUCOSE RANDOM 112 mg/dL (74-106); POTASSIUM,K 3.9 mmol/L (3.5-5.1); SODIUM,NA 136 mmol/L (136-145)
[2021-06-22] MEDS: Insulin Aspart 100 Units/ML 3 ML Pen SUBCUT SCH ×3 (06:10→18:37)
[2021-06-22] MEDS: Pantoprazole 40 MG in Sodium Chloride 0.9% 10 ML IVPUSH SCH ×2 (06:14→18:35)
[2021-06-22] MEDS: Carboxymethylcellulose Sodium 0.5% Ophth Soln 0.4 ML UD Box of 30 EYEBOTH PRN (06:28)
[2021-06-22] MEDS ORDERED: fentaNYL 100 MCG/2 ML SDV IVPUSH PRN (07:41)
[2021-06-22] MEDS ORDERED: Metoclopramide 10 MG/2 ML SDV IVPUSH PRN (07:41)
[2021-06-22] MEDS ORDERED: Albuterol 0.083% 2.5 MG/3 ML Neb Soln NEB PRN (07:41)
[2021-06-22] MEDS ORDERED: Naloxone 0.4 MG/ML SDV IVPUSH PRN (07:41)
[2021-06-22] MEDS ORDERED: Ondansetron 4 MG/2 ML SDV IVPUSH PRN ×2 (07:41→15:59)
[2021-06-22] MEDS ORDERED: HYDROmorphone 1 MG/ML Syringe IVPUSH PRN (07:41)
[2021-06-22] MEDS: Sucralfate Suspension 1 GM/10 ML Cup PO SCH ×4 (08:09→20:37)
[2021-06-22] MEDS: Lactated Ringers 1,000 ML IV SCH (11:13)
[2021-06-22] MEDS ORDERED: Lidocaine 2% 5 ML SDV ONE (12:49)
[2021-06-22] MEDS ORDERED: Dexamethasone 4 MG/ML 5 ML MDV ONE (12:49)
[2021-06-22] MEDS ORDERED: Rocuronium Bromide 50 MG/5 ML Syringe ONE ×2 (12:49→14:56)
[2021-06-22] MEDS ORDERED: Propofol 200 MG/20 ML SDV ONE (12:49)
[2021-06-22] MEDS ORDERED: Midazolam 1 MG/ML 2 ML SDV ONE (12:50)
[2021-06-22] MEDS ORDERED: fentaNYL 250 MCG/5 ML SDV ONE (12:50)
[2021-06-22] MEDS ORDERED: Desflurane 240 ML Bottle ONE (13:40)
[2021-06-22] MEDS ORDERED: Fluorescein 5 ML Vial ONE (13:58)
[2021-06-22] MEDS ORDERED: Octyl 2-Cyanoacrylate 1 Tube ONE (13:59)
[2021-06-22] MEDS ORDERED: Water For Injection, Sterile 20 ML ONE (14:15)
[2021-06-22] MEDS ORDERED: ceFAZolin 1 GM Vial ONE ×2 (14:16)
[2021-06-22] MEDS ORDERED: Sugammadex Sodium 200 MG/2 ML VIAL ONE (14:48)
[2021-06-22] MEDS ORDERED: Acetaminophen/oxyCODONE 325-5 MG Tab PO PRN (15:59)
[2021-06-22] MEDS ORDERED: Promethazine 25 MG/ML SDV IM PRN (15:59)
[2021-06-22] MEDS ORDERED: Ketorolac 30 MG/ML SDV IVPUSH ONE (15:59)
[2021-06-22] MEDS: Acetaminophen/oxyCODONE 325-5 MG Tab PO PRN ×2 (19:11→23:41)
[2021-06-22] MEDS: Ketorolac 30 MG/ML SDV IVPUSH PRN (21:04)
[2021-06-23] MEDS: Insulin Aspart 100 Units/ML 3 ML Pen SUBCUT SCH ×3 (00:24→11:51)
[2021-06-23] MEDS: Morphine 4 MG/ML VIAL IVPUSH PRN ×3 (02:04→06:37)
[2021-06-23] MEDS: Ketorolac 30 MG/ML SDV IVPUSH PRN (03:24)
[2021-06-23 06:24] LABS: BLOOD UREA NITROGEN,BUN 12 mg/dL (7.0-18.0); CARBON DIOXIDE,CO2 22.6 mmol/L (21.0-32.0); CHLORIDE,CL 105 mmol/L (98-107); ESTIMATED GFR > 60.0 ml/min; GLUCOSE RANDOM 276 mg/dL (74-106); POTASSIUM,K 4.3 mmol/L (3.5-5.1); SODIUM,NA 136 mmol/L (136-145)
[2021-06-23] MEDS: Pantoprazole 40 MG in Sodium Chloride 0.9% 10 ML IVPUSH SCH (06:37)
[2021-06-23] MEDS: Sucralfate Suspension 1 GM/10 ML Cup PO SCH ×2 (06:37→11:50)
[2021-06-23] MEDS: Carboxymethylcellulose Sodium 0.5% Ophth Soln 0.4 ML UD Box of 30 EYEBOTH PRN (06:37)
[2021-06-23] MEDS ORDERED: Ketorolac 30 MG/ML SDV IVPUSH SCH (09:00)
[2021-06-23] MEDS ORDERED: Acetaminophen 325 MG Tab PO PRN (10:08)
[2021-06-23] MEDS ORDERED: oxyCODONE 5 MG Tab PO PRN (10:08)
[2021-06-23] MEDS ORDERED: Docusate Sodium 100 MG Cap PO PRN (10:09)
[2021-06-23] MEDS ORDERED: Morphine 4 MG/ML VIAL IVPUSH PRN (10:30)
[2021-06-23 15:29] VITALS: BP 166/90; PULSE 79
== END 2021-06-23 15:30 | disposition home or self-care (01) ==
LOC: MW.ED 01:56 → UNDOADMOB 06:09 → MW.MS 06:09 → MW.SDS 06:09 → UNDODISOB 06-23 15:30 → MW.SDS 06-23 15:30
PROVIDERS: ATTEND Internal Medicine
DX: N72 Inflammatory disease of cervix uteri (principal); N80.0 Endometriosis of uterus; D25.9 Leiomyoma of uterus, unspecified; N83.8 Other noninflammatory disorders of ovary, fallopian tube and broad ligament; I10 Essential (primary) hypertension; D50.0 Iron deficiency anemia secondary to blood loss (chronic); F17.210 Nicotine dependence, cigarettes, uncomplicated; K92.2 Gastrointestinal hemorrhage, unspecified; K21.00 Gastro-esophageal reflux disease with esophagitis, without bleeding; F15.10 Other stimulant abuse, uncomplicated; F11.10 Opioid abuse, uncomplicated; E11.65 Type 2 diabetes mellitus with hyperglycemia; R07.9 Chest pain, unspecified; E66.9 Obesity, unspecified; Z88.1 Allergy status to other antibiotic agents; Z88.8 Allergy status to other drugs, medicaments and biological substances; Z88.6 Allergy status to analgesic agent; Z90.49 Acquired absence of other specified parts of digestive tract; Z90.89 Acquired absence of other organs; Z20.822 Contact with and (suspected) exposure to COVID-19; Z79.84 Long term (current) use of oral hypoglycemic drugs; Z79.899 Other long term (current) drug therapy
CPT/HCPCS: 36415; 36430; 58571; 71045; 71275; 74174; 76830; 80048; 80053; 82272; 82947; 83690; 84484; 84703; 85014; 85018; 85025; 85379; 85610; 85730; 86850; 86900; 86901; 86920; 87338; 87635; 93005; 96374; 96375; 96376; 99285; A9270; C9113; J0131; J0690; J1100; J1170; J1200; J1815; J1885; J2250; J2270; J2550; J2704; J3010; J3490; J7030; J7120; P9016; Q9967; 00840; 93010; 99217; 99219; 99226; 99284; U0002

== ENCOUNTER 2021-07-08 00:16 | Observation (INO) | payer MEDICAID ==
[2021-07-08] MEDS ORDERED: Sodium Chloride 0.9% 1,000 ML IV ONE ×2 (00:19→02:19)
[2021-07-08] MEDS ORDERED: Alum Hydro/Mag Hydro/Simeth XS 15 ML, Lidocaine 2% 5 ML PO ONE ×2 (00:21)
[2021-07-08] MEDS ORDERED: Pantoprazole 80 MG in Sodium Chloride 0.9% 10 ML IVPUSH ONE (00:21)
[2021-07-08] MEDS ORDERED: Promethazine 25 MG/ML SDV IM ONE (00:39)
[2021-07-08 01:06] LABS: BLOOD UREA NITROGEN,BUN 20 mg/dL (7.0-18.0); CARBON DIOXIDE,CO2 22.4 mmol/L (21.0-32.0); CHLORIDE,CL 102 mmol/L (98-107); GLUCOSE RANDOM 198 mg/dL (74-106); LIPASE 136 U/L (73-393); POTASSIUM,K 4.3 mmol/L (3.5-5.1); SODIUM,NA 135 mmol/L (136-145)
[2021-07-08] MEDS ORDERED: HYDROmorphone 1 MG/ML Syringe IVPUSH ONE ×2 (01:30→03:49)
[2021-07-08] MEDS ORDERED: Iopamidol 755 MG/ML 500 ML Multipack Bottle IVPUSH ONE (01:34)
[2021-07-08] MEDS: Lactated Ringers 1,000 ML IV SCH ×2 (06:49→19:18)
[2021-07-08] MEDS: Morphine 2 MG/ML SYRINGE IVPUSH PRN ×4 (06:49→20:38)
[2021-07-08] MEDS: Promethazine 25 MG/ML SDV IM PRN (06:55)
[2021-07-08 07:41] LABS: BLOOD UREA NITROGEN,BUN 19 mg/dL (7.0-18.0); CARBON DIOXIDE,CO2 23.2 mmol/L (21.0-32.0); CHLORIDE,CL 105 mmol/L (98-107); GLUCOSE RANDOM 200 mg/dL (74-106); POTASSIUM,K 4.3 mmol/L (3.5-5.1); SODIUM,NA 135 mmol/L (136-145)
[2021-07-08] MEDS ORDERED: Water For Injection, Sterile 20 ML ONE (09:18)
[2021-07-08] MEDS ORDERED: Propofol 200 MG/20 ML SDV ONE (09:18)
[2021-07-08] MEDS ORDERED: Dexmedetomidine 200 MCG/2 ML SDV ONE (09:18)
[2021-07-08] MEDS ORDERED: Ketamine 500 mg/10 ML MDV ONE (09:21)
[2021-07-08] MEDS: Pantoprazole 40 MG in Sodium Chloride 0.9% 10 ML IVPUSH SCH ×2 (09:31→20:01)
[2021-07-08] MEDS: Sucralfate Suspension 1 GM/10 ML Cup PO SCH ×2 (15:14→20:00)
[2021-07-09] MEDS: Promethazine 25 MG/ML SDV IM PRN (00:42)
[2021-07-09] MEDS: Morphine 2 MG/ML SYRINGE IVPUSH PRN ×3 (00:44→08:07)
[2021-07-09] MEDS: Sucralfate Suspension 1 GM/10 ML Cup PO SCH ×3 (02:29→14:53)
[2021-07-09] MEDS: Lactated Ringers 1,000 ML IV SCH ×2 (03:38→11:47)
[2021-07-09 06:58] LABS: BLOOD UREA NITROGEN,BUN 11 mg/dL (7.0-18.0); CHLORIDE,CL 101 mmol/L (98-107); GLUCOSE RANDOM 273 mg/dL (74-106); SODIUM,NA 133 mmol/L (136-145)
[2021-07-09] MEDS: Pantoprazole 40 MG in Sodium Chloride 0.9% 10 ML IVPUSH SCH (08:05)
[2021-07-09] MEDS ORDERED: Magnesium Sulfate/Water 2 GM in Premix Bag 1 BAG IV ONE (09:00)
[2021-07-09] MEDS ORDERED: oxyCODONE 5 MG Tab PO PRN (09:01)
[2021-07-09 14:36] VITALS: PULSE 92
[2021-07-09] MEDS ORDERED: amLODIPine 5 MG Tab PO ONE (14:55)
[2021-07-09 15:29] VITALS: BP 180/84
== END 2021-07-09 17:25 | disposition home or self-care (01) ==
LOC: MW.ED 00:16 → MW.MS 04:14
PROVIDERS: ADMIT Student in an Organized Health Care Education/Training Program; ATTEND Student in an Organized Health Care Education/Training Program
DX: K29.50 Unspecified chronic gastritis without bleeding (principal); K21.00 Gastro-esophageal reflux disease with esophagitis, without bleeding; K22.89 Other specified disease of esophagus; K31.89 Other diseases of stomach and duodenum; I10 Essential (primary) hypertension; E66.9 Obesity, unspecified; F17.210 Nicotine dependence, cigarettes, uncomplicated; D50.0 Iron deficiency anemia secondary to blood loss (chronic); N39.8 Other specified disorders of urinary system; E11.65 Type 2 diabetes mellitus with hyperglycemia; F11.10 Opioid abuse, uncomplicated; Z68.41 Body mass index [BMI] 40.0-44.9, adult; Z88.8 Allergy status to other drugs, medicaments and biological substances; Z88.1 Allergy status to other antibiotic agents; Z90.49 Acquired absence of other specified parts of digestive tract; Z90.711 Acquired absence of uterus with remaining cervical stump; Z01.812 Encounter for preprocedural laboratory examination; Z20.822 Contact with and (suspected) exposure to COVID-19; Z86.718 Personal history of other venous thrombosis and embolism; Z86.711 Personal history of pulmonary embolism; Z79.84 Long term (current) use of oral hypoglycemic drugs; Z79.899 Other long term (current) drug therapy
CPT/HCPCS: 36415; 43239; 71045; 71275; 74177; 80048; 80053; 80305; 80307; 82947; 83690; 83735; 84100; 84484; 85025; 85379; 87635; 93005; 96372; 96374; 96375; 96376; 99285; A9270; C9113; G0378; J1170; J2270; J2550; J2704; J3475; J3490; J7030; J7120; Q9967; 00731; U0002